=== PATIENT | female | born 1945 | race Two or more races ===

== ENCOUNTER 2024-03-04 07:14 | Emergency (ER) | payer OTHER ==
[~2024-03-04] VITALS: Ht 160 cm; Wt 79.4 kg
[~2024-03-04 07:14] MED LIST: EVISTA60 MG; LISINOPRIL-HCTZ1 TA7; VAGIFEM10 MCG
[2024-03-04 09:15] LABS: HEMATOCRIT 34.1 % (36.0-45.00); HEMOGLOBIN 11.6 g/dL (12.0-15.00); MEAN CELL VOLUME 91.2 fL (80.00-100.00); MEAN CORPUSCULAR HEMOGLOBIN 31.1 pg (27.00-32.0); MEAN CORPUSCULAR HGB CONC 34.1 g/dl (32.0-36.0); PLATELET COUNT 185 K/uL (150-450); RED BLOOD COUNT 3.74 M/uL (4.00-6.00); RED CELL DISTRIBUTION WIDTH 13.4 % (11.5-14.5)
[2024-03-04 09:42] LABS: CALCIUM 8.8 mg/dL (8.5-10.1); CREATININE SERUM 0.79 mg/dL (0.55-1.02); GFR 70.76; POTASSIUM 3.52 mEq/L (3.5-5.1)
[2024-03-04 09:54] LABS: URINE APPEARANCE Clear; URINE BILIRRUBIN Negative (NEGATIVE); URINE BLOOD Moderate; URINE COLOR Yellow; URINE GLUCOSE Negative (NEGATIVE); URINE LEUKOCYTE Moderate; URINE NITRATE Negative; URINE PROTEIN Trace (NEGATIVE); URINE UROBILINOGEN 0.2 E.U./dl
[2024-03-04 09:59] LABS: URINE BACTERIA 372.8 uL (0.0-1933); URINE EPITHELIAL CELLS 53.6 uL (0.0-38.8); URINE WBC 74.3 uL (0.0-23.2)
== END 2024-03-04 12:02 | disposition home or self-care (01) ==
LOC: ER 07:15
PROVIDERS: General Practice
DX: N39.0 Urinary tract infection, site not specified (principal); I10 Essential (primary) hypertension; K57.30 Diverticulosis of large intestine without perforation or abscess without bleeding; K76.89 Other specified diseases of liver

== ENCOUNTER 2025-05-01 07:11 | Emergency (ER) | payer OTHER ==
[~2025-05-01] VITALS: Ht 162.6 cm; Wt 86.2 kg
[2025-05-01] MEDS ORDERED: CEFTRIAXONE SODIUM 1,000 MG VIAL IM ONE (08:45)
[2025-05-01] MEDS ORDERED: TETANUS & DIPHTHERIA TOX,ADULT 0.5 ML VIAL IM ONE (08:45)
[2025-05-01] MEDS ORDERED: CEFTRIAXONE SODIUM 1,000 MG VIAL ONE (09:24)
[2025-05-01] MEDS ORDERED: DIPHTH,PERTUSS(ACELL),TET VAC 0.5 ML SYRINGE IM ONE (09:24)
[2025-05-01] MEDS ORDERED: LIDOCAINE HCL 1% 10ML VIAL ONE (09:28)
== END 2025-05-01 10:35 | disposition home or self-care (01) ==
LOC: ER 07:11
DX: S50.871A Other superficial bite of right forearm, initial encounter (principal); W55.01XA Bitten by cat, initial encounter; Y93.89 Activity, other specified; Y92.89 Other specified places as the place of occurrence of the external cause; I10 Essential (primary) hypertension
CPT/HCPCS: 90471; 90714; J1670